=== PATIENT | female | born 1970 | race Caucasian/White ===

== ENCOUNTER 2023-02-06 06:34 | Outpatient (OUT) | payer OTHER, SELFPAY ==
--- NOTE | 2023-02-06 06:44 | MR_ITS ---
The [address] [address] Patient Name: BENTON BRITO MRN: [id number] date: 1970 Sex: F Assigned Patient Location: MRI Current Patient Location: MRI Accession/Order Number: [id number] Exam Date: 02/06/2023 07:10 Report Date: 02/06/2023 08:21 At the request of: MACHELLE Church APLING Procedure: MR knee LT wo/w con EXAM: MR knee LT wo/w con HISTORY: Left Leg Swelling M79.89 COMPARISON: None. TECHNIQUE: Before and following the intravenous administration of 12 cc of gadolinium, multi planar, multisequence MR imaging of the left knee was performed. Findings: Menisci: The menisci are intact. Cruciate ligaments: The anterior and posterior cruciate ligaments are intact. Collateral ligaments: The medial collateral ligament and lateral collateral complex are intact. Patellofemoral: The extensor mechanism is intact. Trace amount of joint fluid. No significant effusion. 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 Other bones and cartilage: No acute fracture or malalignment. Grade 2 medial and lateral femoral tibial compartment chondromalacia. No focal bone marrow edema. No abnormal osseous enhancement. Miscellaneous: No Izquierdo's cyst. Within the subcutaneous fat distal to the knee and superficial to the anterior compartment is a T2 hyperintense, T1 hypointense, well-circumscribed and ring-enhancing lesion measuring approximately 1.1 x 1.0 x 0.7 cm. MR/MR knee LT wo/w con IMPRESSION: 1. No internal derangement. 2. Cystic lesion within the subcutaneous fat distal to the knee and superficial to the anterior compartment. This appears benign. If indicated, suggest soft tissue sampling/aspiration for histologic correlation. Electronically authenticated by: PANKAJ GREGORY Date: 02/06/2023 08:21
== END 2023-02-06 06:35 | disposition home or self-care (01) ==
PROVIDERS: Visit Provider Nurse Practitioner Family
DX: M79.89 Other specified soft tissue disorders (principal)
CPT/HCPCS: 73723; A9575

== ENCOUNTER 2025-03-31 08:59 | Outpatient (OUT) | payer OTHER, SELFPAY ==
--- NOTE | 2025-03-31 09:06 | MM_ITS ---
Patient Name: BENTON BRITO MR#: [id number] : 1970 Exam Date: 03/31/2025 Ordering Doctor: DR MARIYA HICKEY . RADIOLOGY REPORT PROCEDURE: MM TOMOSYNTHESIS SCREENING BI COMPARISON: MG MAMM SCREEN 3D SANDER CAD, 07/21/2022. MG MAMM SCREEN SANDER W CAD, 08/03/2018. MG MAMM SANDER SCRN W CAD DIG, 07/01/2014. MAMMO SANDER SCREEN, 07/10/2008. INDICATIONS: Screening Calculator Name NCI Breast Cancer Risk Assessment Tool 5 Year Breast Cancer Risk 1.00% Lifetime Breast Cancer Risk 6.70% Personal Breast Cancer No Personal Ovarian Cancer No Treatments None Family Cancers Mother with skin cancer at age 52. LOCATION: [facility] BREAST COMPOSITION: The breasts are extremely dense, which lowers the sensitivity of mammography. FINDINGS: RIGHT BREAST: No significant suspicious finding. There are similar focal asymmetries. Benign-appearing nodes are along the chest wall. LEFT BREAST: There is a benign-appearing lymph node along the left chest wall. There is a new 7 mm focal asymmetry in the lateral aspect of the left breast 5 cm from the nipple laterally at approximately the 3 o'clock position. DIAGNOSTIC CATEGORY 0--INCOMPLETE: NEED ADDITIONAL IMAGING EVALUATION. RECOMMENDATIONS: ADDITIONAL MAMMOGRAPHIC VIEWS REQUIRED: LEFT BREAST - follow-up with spot compressed views of the left breast and ultrasound if necessary is recommended. Dictated by: Akira Patterson MD on 03/31/2025 at 12:24 Approved by: Akira Patterson MD on 03/31/2025 at 12:27
== END 2025-03-31 09:00 | disposition home or self-care (01) ==
LOC: MAMMO 09:00
PROVIDERS: Visit Provider Obstetrics & Gynecology
DX: Z12.31 Encounter for screening mammogram for malignant neoplasm of breast (principal); Z01.419 Encounter for gynecological examination (general) (routine) without abnormal findings; Z80.8 Family history of malignant neoplasm of other organs or systems; R92.8 Other abnormal and inconclusive findings on diagnostic imaging of breast
CPT/HCPCS: 77063; 77067; 88175

== ENCOUNTER 2025-03-31 12:45 | Outpatient (REF) | payer OTHER, SELFPAY | END 2025-03-31 12:46 | disposition home or self-care (01) | LOC: LAB 12:45 | PROVIDERS: Visit Provider Obstetrics & Gynecology | DX: Z01.419 Encounter for gynecological examination (general) (routine) without abnormal findings (principal) | CPT/HCPCS: 87624; 88175 ==